=== PATIENT | female | born 1955 | race Caucasian/White ===

== ENCOUNTER 2016-07-23 12:43 | Emergency (ER) | payer MEDICARE, OTHER ==
--- NOTE | ~2016-07-23 | CT2 ---
[facility] A Service of [facility] RADIOLOGY TEXT RESULTS PATIENT: PAULY BAL LOCATION: [facility] : 51 UNIT #: [id number] AGE: [address]: Erik Hernández MD SEX: F ORDER DR: [id number] [facility] [address] [place], [place] [address] [id number] MR#: [id number] Acc #: [id number] NAME: PAULY BAL : 1955 SEX: F STUDY DATE/TIME: 07/23/2016 14:08 UNIT: [facility] ROOM: STUDY DESCRIPTION: CT Abd and Pelv W Cont Attending Physician: Erik Hernández M.D. Ordering Physician: Dale Lindsey M.D. Primary Care Physician: Primary Care Physician No MEDICAL IMAGING REPORT This report is preliminary unless electronic signature is present EXAM CT abdomen and pelvis with contrast HISTORY Abdominal pain x2 months, right upper quadrant pain, diarrhea, status post cholecystectomy [address] abdomen and pelvis 04/21/2014 FINDINGS Axial images performed through the abdomen and pelvis following IV and oral contrast. Multiplanar reconstructed images reviewed at a workstation. This CT exam was performed with one or more of the following radiation dose reduction techniques: Automatic exposure control, adjustment of mA and/or kV according to patient size, and iterative reconstruction. Lung bases suggest emphysema. Liver, spleen unremarkable. Patient is post cholecystectomy with mild prominence of the common bile duct, but most likely normal in this patient post cholecystectomy. Common bile duct measures less than 1 cm. Pancreas, kidneys and adrenal glands unremarkable. Visualized GI tract unremarkable except for sigmoid diverticular changes. Mild aortic atherosclerotic changes. PELVIS: Bladder unremarkable. Uterus and adnexa appears normal. There is a stable superior endplate compression fracture of L1, which is unchanged from the CT of April 2014. There is a new L3 superior endplate compression fracture with up to 40% loss of the central vertebral body height. No disruption of the posterior vertebral line. Extra abdominal soft tissues unremarkable. IMPRESSION [facility] A Service of [facility] RADIOLOGY TEXT RESULTS PATIENT: PAULY BAL LOCATION: [facility] #: [id number] : 51 UNIT #: [id number] AGE: [address]: Erik Hernández MD SEX: F ORDER DR: 1. No acute intraabdominal or intrapelvic pathology identified. 2. L1 and L3 superior endplate compression fractures. The L1 fracture is stable from April 2014. The L3 fracture, which is up to 40% of the central vertebral body height, is new from the prior CT scan 2014. Correlate with physical findings. 3. Status post cholecystectomy. 4. Suspected emphysema. Dictated by... Abigail Ballard M.D. THIS IS AN ELECTRONICALLY VERIFIED REPORT Abigail Ballard M.D. at 07/24/2016 1:05 PM MARIO/zaynab TD: 07/23/2016 16:28 JOB #: [id number] MEDICAL IMAGING REPORT Page 1 of 1 COPY
[~2016-07-23 12:43] MED LIST: ACETAMINOPHEN325 MG PO; CLONAZEPAM0.5 MG PO; GABAPENTIN400 M2 PO; KLONOPIN1 MG PO; PERCOCET PO; TEGRETOL PO
[2016-07-23 12:59] LABS: URINE SOURCE CLEAN CATCH
[2016-07-23 13:05] LABS: BASOPHIL% 0.4 % (0-2.5); EOSINOPHIL% 0.5 % (0.0-7.0); HEMATOCRIT 43.1 % (35.0-45.0); LYMPHOCYTE# 2.7 X10e3 (1.0-3.5); LYMPHOCYTE% 28.7 % (17.0-45.0); MEAN CELL VOLUME 87.4 FL (83-96); MEAN CORPUSCULAR HEMOGLOBIN 28.4 PG (28-34); MEAN CORPUSCULAR HGB CONC 32.5 g/dL (30-36); MEAN PLATELET VOLUME 7.8 FL (6.5-11.5); MONOCYTE# 0.5 X10e3 (0-1.0); MONOCYTE% 4.9 % (3.0-12.0); NEUTROPHIL# 6.1 X10e3 (1.5-7.1); NEUTROPHIL% 65.5 % (40-75); PLATELET COUNT 190 X10e3 (140-420); RED BLOOD COUNT 4.93 X10e (3.90-5.30); RED CELL DISTRIBUTION WIDTH 13.8 % (11.0-15.5); WHITE BLOOD COUNT 9.3 X10e3 (4.0-10.5)
[2016-07-23 13:06] LABS: DIFF IND NO
[2016-07-23 13:28] LABS: URINE APPEARANCE HAZY; URINE BILIRUBIN NEG (NEG); URINE BLOOD 2+ (NEG); URINE COLOR YELLOW; URINE GLUCOSE NORM (NEG); URINE KETONE 2+ (NEG); URINE LEUKOCYTE ESTERASE 1+ (NEG); URINE NITRATE NEG (NEG); URINE PROTEIN NEG (NEG); URINE UROBILINOGEN NORM (NEG)
[2016-07-23 13:31] LABS: CULTURE INDICATED? NO; URBCS1 AUWI 0-2 /[HPF] (0-2); URINE MUCUS PRESENT; URINE SQUAMOUS EPITHELIAL CELL FEW /[HPF]; UWBCS1 AUWI 0-2 (0-5)
[2016-07-23 13:31] LABS: ALBUMIN SERUM 4.3 g/dL (3.5-5.0); ALKALINE PHOSPHATASE 71 U/L (32-92); ALT (SGPT) 16 U/L (10-40); AMYLASE 15 U/L (0-46); AST (SGOT) 16 U/L (10-42); BILIRUBIN,TOTAL 0.6 mg/dL (0.2-2.0); BLOOD UREA NITROGEN 15 mg/dL (9-23); BUN/CREATININE RATIO 13.63; CALCIUM SERUM 9.4 mg/dL (8.4-10.2); CARBON DIOXIDE 22 mmol/L (22-31); CHLORIDE 104 mmol/L (100-111); CREATININE SERUM 1.1 mg/dL (0.6-1.4); GLOM FILT RATE Estimated 53.4 mL/min (>60); GLUCOSE FASTING 93 mg/dL (70-110); LIPASE 13 U/L (22-51); POTASSIUM 3.9 mmol/L (3.5-5.1); PROTEIN TOTAL SERUM 6.4 g/dL (6.0-8.3); SODIUM 137 mmol/L (135-145)
[2016-07-23 13:41] LABS: BILIRUBIN, DIRECT <0.1 mg/dL (0.0-0.2); BILIRUBIN,INDIRECT 0.5 mg/dL (0.0-0.9)
== END 2016-07-23 15:00 | disposition home or self-care (01) ==
LOC: CED 12:43
PROVIDERS: Emergency Medicine
DX: R10.11 Right upper quadrant pain (principal); S32.019A Unspecified fracture of first lumbar vertebra, initial encounter for closed fracture; S32.039A Unspecified fracture of third lumbar vertebra, initial encounter for closed fracture; Z90.49 Acquired absence of other specified parts of digestive tract; F32.9 Major depressive disorder, single episode, unspecified; Z88.2 Allergy status to sulfonamides; X58.XXXA Exposure to other specified factors, initial encounter
CPT/HCPCS: 36415; 74177; 80048; 80076; 81003; 82150; 83690; 85025; 96361; 96374; 96375; 99284; J2270; J2405; Q9967

== ENCOUNTER → 2016-08-10 | Outpatient (CLI) | payer MEDICARE ==
[2016-08-10 11:21] LABS: HEMATOCRIT 44.9 % (35.0-45.0); HEMOGLOBIN 14.6 gm/dL (12.0-16.0); MEAN CELL VOLUME 87.4 FL (83-96); MEAN CORPUSCULAR HEMOGLOBIN 28.4 PG (28-34); MEAN CORPUSCULAR HGB CONC 32.5 g/dL (30-36); MEAN PLATELET VOLUME 7.4 FL (6.5-11.5); RED BLOOD COUNT 5.13 X10e (3.90-5.30); RED CELL DISTRIBUTION WIDTH 13.8 % (11.0-15.5); WHITE BLOOD COUNT 8.9 X10e3 (4.0-10.5)
[2016-08-10 11:56] LABS: ALBUMIN SERUM 4.5 g/dL (3.5-5.0); BILIRUBIN,TOTAL 0.6 mg/dL (0.2-2.0); BUN/CREATININE RATIO 11.11; CALCIUM SERUM 9.7 mg/dL (8.4-10.2); CREATININE SERUM 0.9 mg/dL (0.6-1.4); GLOM FILT RATE Estimated 68.1 mL/min (>60); POTASSIUM 4.6 mmol/L (3.5-5.1); PROTEIN TOTAL SERUM 6.7 g/dL (6.0-8.3)
== END | disposition home or self-care (01) ==
LOC: CLAB 10:47
PROVIDERS: Specialist
DX: R19.7 Diarrhea, unspecified (principal)
CPT/HCPCS: 36415; 80053; 82274; 83630; 84443; 85027; 86677; 87045; 87177; 87209; 87427; 87493; 87899